=== PATIENT | female | born 2000 | race Caucasian/White ===

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

== ENCOUNTER 2018-01-04 12:17 | Emergency (ER) | payer MEDICAID ==
[~2018-01-04] VITALS: Ht 154.9 cm; Wt 87.1 kg
[2018-01-04] MEDS ORDERED: THERAFLU FLU &1 EAC1 PO (12:40)
== END 2018-01-04 12:45 | disposition home or self-care (01) ==
LOC: ED 12:17
DX: J02.9 Acute pharyngitis, unspecified (principal); M25.552 Pain in left hip

== ENCOUNTER 2018-08-11 13:20 | Emergency (ER) | payer MEDICAID ==
[~2018-08-11] VITALS: Ht 154.9 cm; Wt 81.7 kg
[~2018-08-11 13:20] MED LIST changes: +PROMETHAZINE HC25 M1 PO; +THERAFLU FLU &1 EAC1 PO
[2018-08-11] MEDS ORDERED: PEPCID20 MG PO (15:41)
[2018-08-11] MEDS ORDERED: ZOFRAN4 MG PO (15:41)
== END 2018-08-11 15:54 | disposition home or self-care (01) ==
LOC: ED 13:20
DX: O99.612 Diseases of the digestive system complicating pregnancy, second trimester (principal); K21.9 Gastro-esophageal reflux disease without esophagitis; Z3A.16 16 weeks gestation of pregnancy; Z88.0 Allergy status to penicillin
CPT/HCPCS: 76705; 80053; 81001; 83690; 85025; 87088; 96360; 96361; 99284-25; J7030

== ENCOUNTER 2018-11-18 10:33 | Emergency (ER) | payer OTHER ==
[~2018-11-18] VITALS: Ht 154.9 cm; Wt 81.7 kg
--- OUTSIDE RECORDS SUMMARY | ~2018-11-18 | XMS | Clinical Summary ---
Demographics + + + | Address | [address] | | | [place] [address] | + + + | Home Phone | | + + + | Preferred Language | Unknown | + + + | Marital Status | Single | + + + | Gnosticist Affiliation | NON | + + + | Race | White | + + + | Ethnic Group | Not or | + + + Author + + + | Author | [facility] | + + + | Organization | [facility] | + + + | Address | Unknown | + + + | Phone | Unavailable | + + + Care Team Providers + +------+ + | Care Skiver Blockers Name | Role | Phone | + +------+ + | No Pcp Per Patient | PP | Unavailable | + +------+ + Source Comments EDEN is fully live on both EpicCare Ambulatory and EpicCare InPatient.[facility] Allergies + + + + + + [...] | + + + + + | Influenza (Flu) | | | | | vaccination (#1) | 8 | | | + + + + + Results Not on filefrom Last 3 Months"
--- OUTSIDE RECORDS SUMMARY | ~2018-11-18 | XMS | Clinical Summary ---
Demographics + + + | Address | [address] | | | [place] [address] | + + + | Home Phone | | + + + | Preferred Language | Unknown | + + + | Marital Status | Single | + + + | Holiness Affiliation | NON | + + + | Race | White | + + + | Ethnic Group | Not or | + + + Author + + + | Author | [facility] | + + + | Organization | [facility] | + + + | Address | Unknown | + + + | Phone | Unavailable | + + + Care Team Providers + +------+ + | Care Manager Medicaid Name | Role | Phone | + +------+ + | No Pcp Per Patient | PP | Unavailable | + +------+ + Source Comments EDEN is fully live on both EpicCare Ambulatory and EpicCare InPatient.[facility]ergies + + + + [...]
[~2018-11-18 10:33] MED LIST changes: +PEPCID20 MG PO
[2018-11-18] MEDS ORDERED: OMEPRAZOLE10 MG PO (10:47)
--- OUTSIDE RECORDS SUMMARY | 2018-11-18 11:06 | XMS ---
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 Primary Care 07/28/2018-[facility] DENTAL [facility] PHONE: [phone] LIZABETH WALDROP Primary Care Current PHONE: Unknown KATHYA MONTGOMERY Primary Care Current PHONE: [phone] [facility] Primary Care Current PHONE: Unknown DOCTOR CERRATO Primary Care Current PHONE: Unknown DEBORAH JOAQUIN RAMIRES Primary [facility] PHONE: Unknown TIM VERMA Primary Care Current PHONE: [phone] [facility] has no Care Guidelines for this patient. [place] VISIT COUNT (12 MO.) 4 [facility] TOTAL 4 NOTE: Visits indicate total known visits. ED/UCC VISIT TRACKING (12 MO.) 11/18/2018 10:34 [facility] [place] TYPE: Emergency COMPLAINT: - LEFT HIP PAIN/NON INJURY 08/11/2018 13:22 [facility] [place] TYPE: Emergency COMPLAINT: - ABD PAIN,16 WEEKS DIAGNOSES: - 16 weeks gestation of - Gastro-esophageal reflux disease without esophagitis - Other specified diseases and conditions complicating , childbirth and the puerperium - Diseases of the digestive system complicating , second trimester - Allergy status to penicillin 07/06/2018 14:20 [facility] [place] TYPE: Emergency COMPLAINT: - CRAMPING/ DIAGNOSES: - Lower abdominal pain, unspecified - Allergy status to penicillin - Less than 8 weeks gestation of - Other specified diseases and conditions complicating , childbirth and the puerperium 01/04/2018 12:18 [facility] [place] TYPE: Emergency COMPLAINT: - SORE THROAT/HIP PAIN DIAGNOSES: - Acute pharyngitis, unspecified - Pain in left hip INPATIENT VISIT TRACKING (12 MO.) 11/24/2017 21:38 [facility] [place] TYPE: [facility] COMPLAINT: - LABOR DIAGNOSES: - Personal history of other infectious and parasitic diseases - Other mental disorders complicating childbirth - Personal history of urinary calculi - Streptococcus B carrier state complicating childbirth - Precipitate labor - 38 weeks gestation of - Single live - Allergy status to penicillin - Presence of urogenital implants - Streptococcus B carrier state complicating - Labor and delivery complicated by cord around neck, without compression, not applicable or unspecified - Anxiety disorder, unspecified [email or web address]
[2018-11-18] MEDS ORDERED: PREDNISONE20 MG PO (11:42)
== END 2018-11-18 12:00 | disposition home or self-care (01) ==
LOC: ED 10:33
DX: O99.89 Other specified diseases and conditions complicating pregnancy, childbirth and the puerperium (principal); M54.16 Radiculopathy, lumbar region; Z3A.28 28 weeks gestation of pregnancy; Z88.0 Allergy status to penicillin; Z79.899 Other long term (current) drug therapy
CPT/HCPCS: 99283